=== PATIENT | female | born 2005 | race Caucasian/White ===

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

== ENCOUNTER 2023-02-26 21:08 | Emergency (ER) | payer MEDICAID ==
[~2023-02-26] VITALS: Ht 152.4 cm; Wt 73.0 kg
[~2023-02-26 21:08] MED LIST changes: +MONT-72 PO; -MONT10TA35 PO; +NITR100C7 PO
[2023-02-26 21:49] VITALS: BP 140/58
[2023-02-26] MEDS ORDERED: IBUPROFEN 600 MG TAB PO ONE (22:05)
--- NOTE | 2023-02-26 23:19 | NUR ---
PT TAKEN TO BED 6
--- NOTE | 2023-02-26 23:35 | NUR ---
17 Y/O F presents with flu like symptoms, fever, bodyaches, and coughing with flem and green discharge. pt stated she has a headache intermittently xyesterday. pt is A&Ox4, skin intact, ambulatory without assistance, pt was about 2 months ago, during she had preeclampsia, gest diabetes, and was retaining fluid in legs. pt stated she was seen at [facility]. [facility]h-gest. diabetes, preeclampsia, HTN, asthma NKA
--- NOTE | 2023-02-26 23:35 | NUR ---
Dr. Morse examining patient.
[2023-02-26] MEDS ORDERED: NACL 0.9% 500 ML IV ONE (23:45)
[2023-02-26] MEDS ORDERED: ALBUTEROL SULFATE/IPRATROPIU 3 ML SOL IH ONE (23:45)
--- NOTE | 2023-02-26 23:50 | NUR ---
Respiratory Therapist at bedside for respiratory intervention.
[2023-02-27] LABS: BASOPHILS % (AUTO) 0.4 % (0.0-2.0); EOSINOPHILS # (AUTO) 0.2 K/uL (0-0.4); EOSINOPHILS % (AUTO) 1.9 % (0.0-4.0); HEMATOCRIT 38.2 % (36-48); HEMOGLOBIN 12.5 g/dL (12.0-16.0); LYMPHOCYTES # (AUTO) 0.9 K/uL (2.5-16.5); LYMPHOCYTES % (AUTO) 9.5 % (20.5-51.1); MEAN CORPUSCULAR HEMOGLOBIN 27 pg (27-31); MEAN CORPUSCULAR HGB CONC 33 g/dL (33-37); MEAN CORPUSCULAR VOLUME 80.8 fL (80-94); MONOCYTES # (AUTO) 0.6 K/uL (0.8-1.0); MONOCYTES % (AUTO) 6.1 % (1.7-9.3); NEUTROPHILS # (AUTO) 7.8 K/uL (1.8-7.7); NEUTROPHILS % (AUTO) 82.1 % (42.2-75.2); PLATELET COUNT (AUTO) 300 K/uL (140-450); RED BLOOD CELL COUNT(AUTO) 4.73 MIL/uL (4.20-5.40); RED CELL DISTRIBUTION WIDTH 15.7 % (11.6-13.7); WHITE BLOOD COUNT (AUTO) 9.5 K/uL (4.5-11.0)
[2023-02-27 00:20] LABS: ANION GAP 11.2 (8-16); CARBON DIOXIDE 26.3 mmol/L (21-32); CREATININE 0.8 mg/dL (0.6-1.3); POTASSIUM 3.5 mmol/L (3.5-5.1); PROTHROMBIN TIME 10.6 secs (10.8-13.4); TOTAL BILIRUBIN 0.3 mg/dL (0.0-1.0)
[2023-02-27] MEDS ORDERED: DOXYCYCLINE 100 MG CAP PO SCH (01:25)
--- NOTE | 2023-02-27 01:30 | NUR ---
pt ambulatory to restroom without assist
[2023-02-27] MEDS ORDERED: cefTRIAXone 1,000 MG VIAL ONE (01:34)
[2023-02-27 01:36] LABS: APPEARANCE,URINE CLEAR (CLEAR); BILIRUBIN,URINE NEGATIVE (NEGATIVE); BLOOD, URINE TRACE-I (NEGATIVE); COLOR,URINE YELLOW (YELLOW); LEUKOCYTE ESTERASE ,URINE NEGATIVE (NEGATIVE); NITRITE, URINE NEGATIVE (NEGATIVE); UGLUCOSE NEGATIVE (NEGATIVE)
[2023-02-27] MEDS ORDERED: NACL 0.9% 1,000 ML IV ONE ×2 (01:40→02:40)
[2023-02-27 01:46] VITALS: BP 111/62
[2023-02-27] MEDS ORDERED: ONDANSETRON 4 MG/2 ML VIAL IVP ONE (03:05)
[2023-02-27] MEDS ORDERED: AMOX500C25 PO (03:21)
[2023-02-27] MEDS ORDERED: DOXY-690 PO (03:21)
[2023-02-27] MEDS ORDERED: PRED20TA5 PO (03:21)
[2023-02-27] MEDS ORDERED: BENZ200C4 PO (03:21)
[2023-02-27] MEDS ORDERED: MUC600 PO (03:21)
[2023-02-27] MEDS ORDERED: ALBU0.0912 INH (03:21)
--- NOTE | 2023-02-27 03:32 | NUR ---
Dr. Morse at bedside with ultrasound
--- NOTE | 2023-02-27 03:45 | NUR ---
RT at bedside
[2023-02-27] MEDS ORDERED: ALBUTEROL SULFATE/IPRATROPIU 3 ML SOL IH ONE ×2 (03:50→03:53)
--- NOTE | 2023-02-27 04:16 | NUR ---
Patient discharged with v/s stable. Written and verbal after care instructions given and explained. Patient alert, oriented and verbalized understanding of instructions. Ambulatory with steady gait. All questions addressed prior to discharge. ID band removed. Patient advised to follow up with PMD. Rx of albuterol,amoxicillin, benzonatate, vibramycin, mucinex, and prednisone given. Opportunity to ask questions provided and answered.
== END 2023-02-27 04:16 | disposition home or self-care (01) ==
LOC: MED 21:08
DX: J18.9 Pneumonia, unspecified organism (principal); Z20.822 Contact with and (suspected) exposure to COVID-19; J45.901 Unspecified asthma with (acute) exacerbation; R11.2 Nausea with vomiting, unspecified; R50.9 Fever, unspecified; Z79.899 Other long term (current) drug therapy
CPT/HCPCS: 36415; 71045; 80053; 81003; 82550; 83605; 83880; 84484; 85025; 85379; 85610; 85730; 87040; 87086; 87426; 87804; 93005; 94640; 94760; 96365; 96375; 99285; J0696; J2405; J7030